=== PATIENT | female | born 1955 | race African-American/Black ===

== ENCOUNTER 2023-02-20 19:52 | Inpatient (IN) | payer MEDICARE, OTHER ==
[2023-02-20 20:02] VITALS: BMI 25.9
[2023-02-20] MEDS ORDERED: FAMOTIDINE 20 MG/50 ML IVPB 20 MG/50 ML MG IVPB ONE ×2 (20:36→21:03)
[2023-02-20 21:09] LABS: BASO % 0.9 % (0-2.0); EOS % 1.3 % (0-4.5); HEMATOCRIT 41.6 % (32.4-45.2); HEMOGLOBIN 13.9 GM/dL (10.7-15.3); LYMPH % 31.4 % (8-40); MCH 27.3 pg (25.7-33.7); MCHC 33.4 g/dl (32.0-36.0); MEAN CELL VOLUME 81.8 fl (80-96); MEAN PLT VOLUME 9.3 fl (7.5-11.1); MONO % 6.4 % (3.8-10.2); PLATELET COUNT 251 10^3/uL (134-434); RBC 5.09 M/mm3 (3.60-5.2); RDW 14.9 % (11.6-15.6); WHITE BLOOD COUNT 7.3 K/mm3 (4.0-10.0)
[2023-02-20 21:14] LABS: INR 1.01 (0.83-1.09); PROTHROMBIN TIME (PATIENT) 11.7 SEC (9.7-13.0)
[2023-02-20 21:17] LABS: ACTIVATED PTT 28.1 SECONDS (25.2-36.5)
[2023-02-20 21:19] LABS: EPI CELLS 2 /uL (0-25.1); HYALINE CASTS 0 /uL (0-3.1); URINE APPEARANCE CLEAR; URINE BACTERIA >9,000 /uL (0-1359); URINE BILIRUBIN NEGATIVE (NEGATIVE); URINE COLOR YELLOW; URINE GLUCOSE (UA) 3+ (NEGATIVE); URINE KETONE TRACE (NEGATIVE); URINE LEUK ESTERASE TRACE (NEGATIVE); URINE NITRITE POSITIVE (NEGATIVE); URINE PROTEIN TRACE (NEGATIVE); URINE RBC 28 /uL (0-23.9); URINE UROBILINOGEN 0.2 mg/dL (0.2-1.0); URINE WBC 123 /uL (0-25.8)
[2023-02-20 21:36] LABS: POTASSIUM 3.9 mmol/L (3.5-5.1)
[2023-02-20 21:39] LABS: ALBUMIN 3.6 g/dl (3.4-5.0)
[2023-02-20 21:42] LABS: CREATININE 0.9 mg/dL (0.55-1.3)
[2023-02-20 21:43] LABS: BILIRUBIN,TOTAL 0.4 mg/dL (0.2-1)
[2023-02-20 21:44] LABS: TOT PROT 7.4 g/dl (6.4-8.2)
[2023-02-20] MEDS ORDERED: CEFTRIAXONE 1 GM/50 ML BAG ONE (21:57)
[2023-02-21] MEDS ORDERED: LISINOPRIL 10 MG TABLET PO ONE ×2 (00:06→00:10)
[2023-02-21] MEDS ORDERED: INSULIN (NOVOLOG) ASPART 100 UNITS/ML 10ML VIAL SQ ONE (00:28)
[2023-02-21] MEDS ORDERED: HYDROCHLOROTHIAZIDE 12.5 MG CAPSULE (FP) PO ONE (00:28)
[2023-02-21] MEDS ORDERED: LISINOPRIL 10 MG TABLET ONE (00:44)
[2023-02-21] MEDS ORDERED: HYDROCHLOROTHIAZIDE 25 MG TABLET (FP) ONE (00:52)
[2023-02-21] MEDS ORDERED: ASPIRIN 81 MG CHEWABLE TABLETS PO ONE (01:26)
[2023-02-21] MEDS ORDERED: ASPIRIN 81 MG CHEWABLE TABLETS ONE (01:27)
[2023-02-21] MEDS ORDERED: HEPARIN NA (PORCINE) 5,000 UNITS/ML 1ML VIAL IVPUSH PRN ×2 (01:52)
[2023-02-21] MEDS ORDERED: metoPROLOL SUCCINATE 25 MG TAB.SR.24H (FP) PO SCH (01:56)
[2023-02-21] MEDS ORDERED: HEPARIN INFUSION - 25,000 UNITS/500 ML INFUS.BAG IVPB SCH (02:00)
[2023-02-21] MEDS ORDERED: METOCLOPRAMIDE HCL INJECTION 10 MG/2 ML VIAL IVPB ONE (02:12)
[2023-02-21] MEDS ORDERED: METOCLOPRAMIDE HCL INJECTION 10 MG/2 ML VIAL ONE (02:14)
[2023-02-21] MEDS ORDERED: TRIMETHOBENZAMIDE HCL 200MG/2ML INJ IM PRN (02:29)
[2023-02-21] MEDS ORDERED: SODIUM CHLORIDE 1,000 ML IV STA (02:29)
[2023-02-21] MEDS ORDERED: SODIUM CHLORIDE 500 ML IV STA (02:30)
[2023-02-21] MEDS ORDERED: NITROGLYCERIN 2% OINTMENT - 1GM PACKET TD SCH (02:38)
[2023-02-21] MEDS ORDERED: NITROGLYCERIN SUBLINGUAL 1/150 0.4 MG TAB SL PRN (02:40)
[2023-02-21] MEDS ORDERED: METOPROLOL TARTRATE 5 MG/5 ML VIAL IVPUSH SCH (02:45)
[2023-02-21] MEDS ORDERED: ONDANSETRON 4 MG/2 ML VIAL IVPUSH PRN (02:52)
[2023-02-21] MEDS ORDERED: INSULIN SLIDING SCALE (NOVOLOG) 1 VIAL SQ SCH (07:00)
[2023-02-21 08:09] LABS: BASO % 1.8 % (0-2.0); EOS % 0.7 % (0-4.5); HEMATOCRIT 41.8 % (32.4-45.2); HEMOGLOBIN 14.2 GM/dL (10.7-15.3); LYMPH % 35.8 % (8-40); MCH 27.4 pg (25.7-33.7); MCHC 33.8 g/dl (32.0-36.0); MEAN CELL VOLUME 80.8 fl (80-96); MEAN PLT VOLUME 8.8 fl (7.5-11.1); NEUT % 57.7 % (42.8-82.8); PLATELET COUNT 237 10^3/uL (134-434); RBC 5.17 M/mm3 (3.60-5.2); RDW 14.8 % (11.6-15.6); WHITE BLOOD COUNT 8.4 K/mm3 (4.0-10.0)
[2023-02-21] MEDS ORDERED: CEFTRIAXONE 1 GM/50 ML BAG ONE (08:30)
[2023-02-21 08:50] LABS: ALBUMIN 3.5 g/dl (3.4-5.0); BILIRUBIN,TOTAL 0.4 mg/dL (0.2-1); BLOOD UREA NITROGEN 9.3 mg/dL (7-18); CALCIUM 8.9 mg/dL (8.5-10.1); CREATININE 0.8 mg/dL (0.55-1.3); MAGNESIUM 1.7 mg/dL (1.8-2.4); PHOSPHOROUS 3.8 mg/dL (2.5-4.9); POTASSIUM 3.8 mmol/L (3.5-5.1); TOT PROT 7.5 g/dl (6.4-8.2)
[2023-02-21] MEDS ORDERED: CLOPIDOGREL BISULFATE 300 MG TABLET PO ONE (08:58)
[2023-02-21] MEDS ORDERED: LISINOPRIL 10 MG TABLET PO SCH (10:00)
[2023-02-21] MEDS ORDERED: FAMOTIDINE 20 MG TABLET PO SCH (10:00)
[2023-02-21] MEDS ORDERED: ASPIRIN COATED 81 MG TABLET.EC PO SCH (10:00)
[2023-02-21] MEDS ORDERED: INSULIN (LEVEMIR) 100 UNITS/ML UNITS SQ SCH (10:00)
[2023-02-21] MEDS ORDERED: CEFTRIAXONE 1 GM in DEXTROSE 5%-WATER - 50 ML IVPB SCH (10:00)
[2023-02-21] MEDS ORDERED: METOPROLOL TARTRATE 25 MG TABLET (FP) PO SCH ×2 (10:00)
[2023-02-21 11:49] VITALS: BP 145/83; PULSE 75; RESP 20
[2023-02-21 12:18] VITALS: TEMP 98
[2023-02-21] MEDS ORDERED: ATORVASTATIN CA 80 MG TABLET (FP) PO ONE (12:34)
[2023-02-21] MEDS ORDERED: ATORVASTATIN CA 20 MG TABLET (FP) PO SCH (22:00)
== END 2023-02-21 11:30 | disposition short-term general hospital (02) | DRG 281 ==
LOC: JER 19:52 → JERBED 02-21 00:05 → OBSVTOIN 02-21 00:05
PROVIDERS: ADMIT Internal Medicine; ATTEND Internal Medicine
DX: I21.4 Non-ST elevation (NSTEMI) myocardial infarction (principal); N39.0 Urinary tract infection, site not specified; I10 Essential (primary) hypertension; E78.5 Hyperlipidemia, unspecified; E11.9 Type 2 diabetes mellitus without complications; N28.1 Cyst of kidney, acquired; B96.1 Klebsiella pneumoniae [K. pneumoniae] as the cause of diseases classified elsewhere
CPT/HCPCS: 36415; 71275-TC; 74174-TC; 76705-TC; 80053; 80061; 81003; 82962; 83036; 83605; 83690; 83735; 84100; 84484; 85025; 85610; 85730; 86900; 87086; 87186; 93005; 93010; 99285-25; J1644; Q9967

== ENCOUNTER 2024-04-24 00:23 | Observation (INO) | payer MEDICARE, OTHER ==
[2024-04-24 01:53] LABS: BASO % 0.6 % (0-2.0); EOS % 1.3 % (0-4.5); HEMATOCRIT 36.1 % (32.4-45.2); HEMOGLOBIN 12.3 GM/dL (10.7-15.3); LYMPH % 31.4 % (8-40); MCH 27.9 pg (25.7-33.7); MCHC 34.2 g/dl (32.0-36.0); MEAN CELL VOLUME 81.4 fl (80-96); MONO % 8.5 % (3.8-10.2); NEUT % 58.2 % (42.8-82.8); PLATELET COUNT 248 10^3/uL (134-434); RBC 4.43 M/mm3 (3.60-5.2); RDW 14.4 % (11.6-15.6)
[2024-04-24 02:02] LABS: VENOUS BASE EXCESS -0.2 mmol/L (-2-2); VENOUS O2 SATURATION 49.7 % (70-80); VENOUS PCO2 56.5 mmHg (38-52); VENOUS PH 7.3 (7.310-7.410)
[2024-04-24 02:21] LABS: POTASSIUM 4.4 mmol/L (3.5-5.1)
[2024-04-24 02:24] LABS: CALCIUM 8.6 mg/dL (8.5-10.1)
[2024-04-24 02:25] LABS: ALBUMIN 2.7 g/dl (3.4-5.0); BLOOD UREA NITROGEN 19.9 mg/dL (7-18); MAGNESIUM 1.8 mg/dL (1.8-2.4)
[2024-04-24 02:27] LABS: CREATININE 1.2 mg/dL (0.55-1.3)
[2024-04-24 02:29] LABS: BILIRUBIN,TOTAL 0.2 mg/dL (0.2-1); TOT PROT 6.2 g/dl (6.4-8.2)
[2024-04-24 02:47] LABS: LACTIC ACID 2.7 mmol/L (0.4-2.0)
[2024-04-24 05:38] LABS: EPI CELLS 5 /uL (0-25.1); HYALINE CASTS 1 /uL (0-3.1); PH,URINE 5.5 (5.0-8.0); URINE APPEARANCE CLEAR; URINE BACTERIA >9,000 /uL (0-1359); URINE BILIRUBIN NEGATIVE (NEGATIVE); URINE COLOR YELLOW; URINE GLUCOSE (UA) 1+ (NEGATIVE); URINE KETONE TRACE (NEGATIVE); URINE LEUK ESTERASE 1+ (NEGATIVE); URINE NITRITE POSITIVE (NEGATIVE); URINE PROTEIN NEGATIVE (NEGATIVE); URINE RBC 17 /uL (0-23.9); URINE UROBILINOGEN 0.2 mg/dL (0.2-1.0); URINE WBC 241 /uL (0-25.8)
[2024-04-24] MEDS ORDERED: ACETAMINOPHEN 325 MG TABLET (FP) PO PRN (05:43)
[2024-04-24] MEDS: SODIUM CHLORIDE 1,000 ML IV SCH ×2 (06:11→11:24)
[2024-04-24 06:51] LABS: LACTIC ACID 2.6 mmol/L (0.4-2.0)
[2024-04-24] MEDS ORDERED: CEFTRIAXONE 1 GM/50 ML BAG ONE (07:21)
[2024-04-24 07:49] LABS: POTASSIUM 4.7 mmol/L (3.5-5.1)
[2024-04-24 07:52] LABS: BLOOD UREA NITROGEN 26.7 mg/dL (7-18); MAGNESIUM 1.7 mg/dL (1.8-2.4)
[2024-04-24] MEDS ORDERED: INSULIN ASPART SLIDING SCALE (NOVOLOG) 1 VIAL SQ ONE ×3 (07:52→11:55)
[2024-04-24 07:56] LABS: CREATININE 1.4 mg/dL (0.55-1.3); PHOSPHOROUS 4.6 mg/dL (2.5-4.9)
[2024-04-24] MEDS: INSULIN ASPART SLIDING SCALE (NOVOLOG) 1 VIAL SQ SCH (08:02)
[2024-04-24 08:05] LABS: LACTIC ACID 2.6 mmol/L (0.4-2.0)
[2024-04-24] MEDS: SODIUM CHLORIDE 1,000 ML IV STA (09:38)
[2024-04-24] MEDS ORDERED: ISOSORBIDE MONONITRATE 30 MG TAB.SR.24H (FP) PO SCH (10:00)
[2024-04-24] MEDS: INSULIN (LEVEMIR) 100 UNITS/ML UNITS SQ ONE (12:16)
[2024-04-24 12:58] LABS: LACTIC ACID 2.5 mmol/L (0.4-2.0)
[2024-04-24 18:37] VITALS: BMI 29.2
[2024-04-24] MEDS: INSULIN (LEVEMIR) 100 UNITS/ML UNITS SQ SCH (22:06)
[2024-04-24] MEDS: ATORVASTATIN CA 80 MG TABLET (FP) PO SCH (22:07)
[2024-04-25] MEDS: guaiFENesin/D-METHORPHAN HB 10 ML UNIT-DOSE CUPS PO PRN (04:30)
[2024-04-25] MEDS: guaiFENesin 200 MG/10 ML 10 ML UNIT-DOSE CUPS PO ONE (07:31)
[2024-04-25 07:35] LABS: BASO % 0.5 % (0-2.0); EOS % 2.2 % (0-4.5); HEMATOCRIT 36.5 % (32.4-45.2); HEMOGLOBIN 12.4 GM/dL (10.7-15.3); LYMPH % 48.1 % (8-40); MCH 27.8 pg (25.7-33.7); MCHC 33.9 g/dl (32.0-36.0); MEAN CELL VOLUME 81.8 fl (80-96); MEAN PLT VOLUME 8.4 fl (7.5-11.1); MONO % 6.1 % (3.8-10.2); NEUT % 43.1 % (42.8-82.8); PLATELET COUNT 263 10^3/uL (134-434); RBC 4.46 M/mm3 (3.60-5.2); RDW 14.5 % (11.6-15.6); WHITE BLOOD COUNT 6.3 K/mm3 (4.0-10.0)
[2024-04-25 07:44] LABS: POTASSIUM 4.1 mmol/L (3.5-5.1)
[2024-04-25 07:47] LABS: CALCIUM 8.8 mg/dL (8.5-10.1)
[2024-04-25 07:49] LABS: BLOOD UREA NITROGEN 13.9 mg/dL (7-18)
[2024-04-25 07:52] LABS: BILIRUBIN,TOTAL 0.6 mg/dL (0.2-1); TOT PROT 6.8 g/dl (6.4-8.2)
[2024-04-25] MEDS: INSULIN (LEVEMIR) 100 UNITS/ML UNITS SQ ONE (09:21)
[2024-04-25] MEDS: CEFTRIAXONE 1 GM in DEXTROSE 5%-WATER - 50 ML IVPB SCH (09:22)
[2024-04-25] MEDS: metoPROLOL SUCCINATE 25 MG TAB.SR.24H (FP) PO SCH (09:23)
[2024-04-25] MEDS: ISOSORBIDE MONONITRATE 30 MG TAB.SR.24H (FP) PO SCH (09:23)
[2024-04-25] MEDS: PATIENT'S OWN MEDICATION (NON-FORMULARY) (Lisinopril/Hydrochlorothiazide [Lisinopril-Hctz PO SCH (14:57)
[2024-04-25] MEDS: INSULIN (LEVEMIR) 100 UNITS/ML UNITS SQ SCH (21:55)
[2024-04-26 06:40] VITALS: BP 165/95; PULSE 88; RESP 18; TEMP 97.9
[2024-04-26 07:45] LABS: HEMATOCRIT 35.9 % (32.4-45.2); HEMOGLOBIN 12.4 GM/dL (10.7-15.3); MCH 27.9 pg (25.7-33.7); MCHC 34.5 g/dl (32.0-36.0); MEAN CELL VOLUME 80.9 fl (80-96); MEAN PLT VOLUME 8.3 fl (7.5-11.1); PLATELET COUNT 252 10^3/uL (134-434); RBC 4.43 M/mm3 (3.60-5.2); RDW 14.3 % (11.6-15.6); WHITE BLOOD COUNT 6.3 K/mm3 (4.0-10.0)
[2024-04-26 07:55] LABS: POTASSIUM 3.8 mmol/L (3.5-5.1)
[2024-04-26 08:10] LABS: BLOOD UREA NITROGEN 15.3 mg/dL (7-18); CALCIUM 9.1 mg/dL (8.5-10.1)
[2024-04-26 08:13] LABS: CREATININE 0.9 mg/dL (0.55-1.3)
[2024-04-26] MEDS: HYDROCHLOROTHIAZIDE 12.5 MG CAPSULE (FP) PO SCH (10:23)
[2024-04-26] MEDS: LISINOPRIL 20 MG TABLET PO SCH (10:23)
== END 2024-04-26 12:35 | disposition home or self-care (01) ==
LOC: JER 00:23 → JERBED 05:43 → J4W 15:42
PROVIDERS: ADMIT Internal Medicine; ATTEND Nurse Practitioner
PROC: 3E03329 Introduction of Other Anti-infective into Peripheral Vein, Percutaneous Approach (ICD-10-PCS; principal; 2024-04-24)
PROC: 3E013VG Introduction of Insulin into Subcutaneous Tissue, Percutaneous Approach (ICD-10-PCS; 2024-04-24)
PROC: 3E0337Z Introduction of Electrolytic and Water Balance Substance into Peripheral Vein, Percutaneous Approach (ICD-10-PCS; 2024-04-24)
DX: E87.20 Acidosis, unspecified (principal); E11.65 Type 2 diabetes mellitus with hyperglycemia; E78.5 Hyperlipidemia, unspecified; N17.9 Acute kidney failure, unspecified; I11.9 Hypertensive heart disease without heart failure; G47.33 Obstructive sleep apnea (adult) (pediatric); Z29.89 Encounter for other specified prophylactic measures; Z88.8 Allergy status to other drugs, medicaments and biological substances
CPT/HCPCS: 36415; 71045-TC-FY; 80048; 80053; 81003; 82010; 82803; 82962; 83036; 83605; 83735; 84100; 84484; 85025; 85027; 87086; 87186; 93005; 93010; 94010; 96361; 96365; 96372; 96376; 99285-25; G0378

== ENCOUNTER 2025-04-09 00:40 | Emergency (ER) | payer OTHER ==
[2025-04-09 00:53] VITALS: TEMP 98; BMI 27.1
[2025-04-09 02:25] LABS: ABSOLUTE IMMATURE GRANULOCYTES 0.02 x10^3/uL (0.0-0.031); BASOPHILS # 0.04 x10^3/uL (0.01-0.08); EOSINOPHIL % 1.3 % (0.7-5.8); EOSINOPHILS # 0.10 x10^3/uL (0.04-0.36); MCHC 34.1 g/dl (32.2-35.5); MEAN CELL VOLUME 79.8 fl (79.4-94.8); MEAN PLT VOLUME 9.9 fl (9.4-12.3); MONOCYTE # 0.49 x10^3/uL (0.24-0.86); MONOCYTE % 6.6 % (4.7-12.5); RDW 14.0 % (12.4-16.4)
[2025-04-09 02:47] LABS: GLUCOSE,RANDOM 153.0 mg/dL (74-106); TOT PROT 7.2 g/dl (6.4-8.2)
[2025-04-09 02:49] LABS: CO2 22.0 mmol/L (21-32)
[2025-04-09 02:50] LABS: ALK PHOS 156.0 U/L (40-150)
[2025-04-09 02:53] LABS: CREATININE 1.24 mg/dL (0.55-1.3); SGOT/AST 26.0 U/L (5-34); SGPT/ALT 32.0 U/L (0-55)
[2025-04-09] MEDS ORDERED: MAGNESIUM 1GM/D5W - 1 GM/100 ML IVPB IVPB ONE (03:32)
[2025-04-09] MEDS: MAGNESIUM SULF 50% (8.12 MEQ/2 ML-1 GM VIAL) IVPB ONE (03:37)
[2025-04-09 04:13] LABS: URINE APPEARANCE CLEAR; URINE BILIRUBIN NEGATIVE (NEGATIVE); URINE COLOR YELLOW; URINE GLUCOSE (UA) NEGATIVE (NEGATIVE); URINE KETONE NEGATIVE (NEGATIVE); URINE LEUK ESTERASE NEGATIVE (NEGATIVE); URINE NITRITE NEGATIVE (NEGATIVE); URINE PROTEIN NEGATIVE (NEGATIVE); URINE UROBILINOGEN 1.0 mg/dL (0.2-1.0)
[2025-04-09] MEDS ORDERED: MAG HYDROX/AL HYDROX/SIMETH 30 ML UNIT-DOSE CUP ONE (05:52)
[2025-04-09] MEDS ORDERED: FAMOTIDINE 20 MG/50 ML IVPB 20 MG/50 ML MG IVPB ONE (05:52)
[2025-04-09] MEDS: FAMOTIDINE 20 MG/50 ML IVPB 20 MG/50 ML MG IVPB ONE (05:57)
[2025-04-09] MEDS: MAG HYDROX/AL HYDROX/SIMETH 30 ML UNIT-DOSE CUP PO ONE (05:57)
[2025-04-09 06:16] VITALS: BP 128/76; PULSE 80; RESP 18
[2025-04-09 06:43] LABS: HCV DIAGNOSTIC IN-HOUSE W/RFLX NON-REACTIVE (NONREACTIVE)
[2025-04-09 06:45] LABS: HIV INTERPRETATION NEGATIVE (NEGATIVE)
== END 2025-04-09 07:14 | disposition home or self-care (01) ==
LOC: JER 00:40
PROC: 3E033GC Introduction of Other Therapeutic Substance into Peripheral Vein, Percutaneous Approach (ICD-10-PCS; principal; 2025-04-09)
PROC: 3E033GC Introduction of Other Therapeutic Substance into Peripheral Vein, Percutaneous Approach (ICD-10-PCS; 2025-04-09)
DX: E11.649 Type 2 diabetes mellitus with hypoglycemia without coma (principal); Z79.84 Long term (current) use of oral hypoglycemic drugs
CPT/HCPCS: 36415; 80053; 81003; 82962; 83735; 85025; 86803; 87086; 87389; 93005; 93010; 99284-25